=== PATIENT | female | born 1940 | race Caucasian/White ===

== ENCOUNTER → 2016-06-15 | Outpatient (CLI) | payer MEDICARE, OTHER ==
[~2016-06-15] MED LIST: AMILORIDE HCL-H1 TAB PO; ASPIRIN ENTERI325 M1 PO; ATORVASTATIN CA10 MG PO; CELECOXIB200 MG PO; DOXAZOSIN MESYLA2 MG PO; FLEXERIL10 MG PO; LEVOTHYROXINE50 MCG PO; NEURONTIN PO; OXYCODON HCL-1 UDTA1 PO; OXYCONTIN10 MG PO; PANTOPRAZOLE SO40 MG PO; PERCOCET 10/3251 TAB PO; RAMIPRIL10 MG PO; ZYRTEC10 M1 PO
--- NOTE | ~2016-06-15 | CR63 ---
[facility] A Service of [facility] RADIOLOGY TEXT RESULTS PATIENT: NEHA ANDERSON LOCATION: [facility] : 40 UNIT #: [id number] AGE: [address]: Fabián Prieto MD SEX: F ORDER DR: [id number] [facility] [address] [place], [place] [address] [id number] O MR#: [id number] Acc #: [id number] NAME: NEHA ANDERSON : 1940 SEX: F STUDY DATE/TIME: 06/15/2016 11:20 UNIT: [facility] ROOM: STUDY DESCRIPTION: CR Chest 2 View Attending Physician: Fabián Prieto M.D. Referring Physician: Fabián Prieto M.D. Ordering Physician: Fabián Prieto M.D. Primary Care Physician: Nahum Marie M.D. MEDICAL IMAGING REPORT This report is preliminary unless electronic signature is present EXAM PA and lateral chest, 06/15/2016. COMPARISON STUDIES None HISTORY Preop left total knee arthroplasty. TECHNIQUE PA and lateral views are obtained. FINDINGS The heart size is normal. Vascular pattern is normal. Lungs appear clear with no acute process identified. There is degenerative disc disease throughout the thoracolumbar spine. There are atherosclerotic calcifications in the aorta. The patient has scoliosis. CONCLUSION 1. Scoliosis. 2. No active disease. Dictated by... Con Borjas M.D. THIS IS AN ELECTRONICALLY VERIFIED REPORT Con Borjas M.D. at 06/15/2016 5:06 PM LUCAS/anabell TD: 06/15/2016 15:19 JOB #: [id number] [facility] A Service [facility] RADIOLOGY TEXT RESULTS PATIENT: NEHA ANDERSON LOCATION: [facility] : 40 UNIT #: [id number] AGE: [address]: Fabián Prieto MD SEX: F ORDER DR: MEDICAL IMAGING REPORT COPY
--- NOTE | ~2016-06-15 | EKG ---
PATIENT: NEHA ANDERSON UNIT #: [id number] Ventricular Rate: 95 BPM Atrial Rate: 95 BPM P-R Interval: 168 ms QRS Duration: 88 ms Q-T Interval: 352 ms QTC Calculation(Bezet): 442 ms P [place]: 66 degrees Calculated R [place]: -13 degrees Calculated T [place]: 18 degrees Diagnosis Line: Normal sinus rhythm Diagnosis Line: Normal ECG Diagnosis Line: No previous ECGs available Diagnosis Line: Confirmed by JAMAL FRANCOIS MD ([id number]) on Diagnosis Line: 06/16/2016 11:46:49 AM INTERPRETING MD: SULAIMAN
[2016-06-15 11:19] LABS: URINE APPEARANCE CLEAR; URINE BILIRUBIN NEG (NEG); URINE BLOOD NEG (NEG); URINE COLOR YELLOW; URINE GLUCOSE NEG (NEG); URINE KETONE NEG (NEG); URINE LEUKOCYTE ESTERASE TRACE (NEG); URINE NITRATE NEG (NEG); URINE PH 7.5 (5-8); URINE PROTEIN NEG (NEG); URINE SPECIFIC GRAVITY 1.018 (1.003-1.035)
[2016-06-15 11:20] LABS: URBCS1 AUWI 0-2 /[HPF] (0-2); URINE BACTERIA AUWI NEG (NEGATIVE); URINE SQUAMOUS EPITHELIAL CELL NONE SEEN /[HPF]
[2016-06-15 11:21] LABS: MEAN CELL VOLUME 94.1 FL (83-96); MEAN CORPUSCULAR HEMOGLOBIN 31.3 PG (28-34); MEAN CORPUSCULAR HGB CONC 33.2 g/dL (30-36); RED BLOOD COUNT 4.15 X10e (3.90-5.30); WHITE BLOOD COUNT 6.1 X10e3 (4.0-10.5)
[2016-06-15 11:22] LABS: CULTURE INDICATED? NO
[2016-06-15 11:24] LABS: URINE SOURCE VOID
[2016-06-15 11:26] LABS: PROTHROMBIN TIME (PATIENT) 10.7 SECONDS (9.6-11.5)
[2016-06-15 12:01] LABS: ALBUMIN SERUM 4.4 g/dL (3.5-5.0); BILIRUBIN,TOTAL 0.6 mg/dL (0.2-2.0); CALCIUM SERUM 9.5 mg/dL (8.4-10.2); GLOM FILT RATE Estimated 57.4 mL/min (>60); POTASSIUM 4.4 mmol/L (3.5-5.1); PROTEIN TOTAL SERUM 7.3 g/dL (6.0-8.3)
== END | disposition home or self-care (01) ==
LOC: CAMB 09:49
PROVIDERS: Orthopaedic Surgery
DX: Z01.818 Encounter for other preprocedural examination (principal); M17.12 Unilateral primary osteoarthritis, left knee; M41.9 Scoliosis, unspecified
CPT/HCPCS: 36415; 71020; 80053; 81003; 85027; 85610; 86850; 86900; 86901; 87070; 93005

== ENCOUNTER → 2016-06-16 | Outpatient (CLI) | payer MEDICARE, OTHER ==
--- NOTE | ~2016-06-16 | CO ---
Unit #: [id number] #: [id number] Patient: NEHA ANDERSON [id number] [address] [place], [place] [address] [id number] O MR#: [id number] NAME: NEHA ANDERSON ROOM: Age: 75 Sex: F Admission Date: 06/16/2016 : 1940 Attending Physician: Fabián Prieto M.D. Primary Care Physician: Nahum Marie M.D. Consultation Date: 06/16/2016 CONSULTATION REPORT REASON FOR CONSULTATION Preoperative medical evaluation prior to left total knee arthroplasty scheduled by Dr. Prieto for June 29, 2016. HISTORY OF PRESENT ILLNESS The patient is a 75-year-old female who presented to preprocedural screening for the reason as indicated above. The patient reports a history of left knee pain. She has no other complaints during the time of this interview. She denies chest, arm, neck, or jaw pain or pressure. Denies lightheadedness, dizziness, syncope, presyncope, palpitations, dyspnea on exertion, paroxysmal nocturnal dyspnea, and snoring when she sleeps. She is able to climb a flight of stairs without shortness of breath or chest pain. She has never been advised to have a cardiac catheterization or a stress test procedure. PAST MEDICAL HISTORY 1. Right breast cancer. 2. Hypertension. 3. Vitamin D deficiency. 4. History of thyroid nodule. 5. Kidney failure secondary to hypotension induced by Norvasc (1) blood pressure medication. 6. Gastroesophageal reflux disease. 7. Hyperlipidemia. 8. Allergic rhinitis. 9. Osteoarthritis. 10. Scoliosis. 11. Occipital neuralgia. 12. Chronic low back pain. PAST SURGICAL HISTORY 1. Right total knee arthroplasty. 2. Right parathyroidectomy. 3. Right mastectomy. 4. Breast reconstruction. 5. Bilateral hammertoes. 6. Gallbladder. 7. Epidural blocks. 8. Occipital blocks. 9. EGD/biopsy. 10. Colonoscopy. 11. Patient denies history of kyphoplasty and denies history of CABG. Please note, this patient states that she consistently exhibits "low Unit #: [id number] #: [id number] Patient: NEHA ANDERSON oxygen in the recovery room." MEDICATION ALLERGIES None. ADVERSE MEDICATION REACTIONS Hypotension with associated kidney failure secondary to use of Norvasc in addition to three other blood pressure medications, and Reglan made her hyper and nervous. CURRENT MEDICATIONS 1. Ramipril 10 mg p.o. every morning. 2. Amiloride HCl and hydrochlorothiazide 5/50 mg tab 1 p.o. every morning. 3. Doxazosin methylate 2 mg p.o. at bedtime. 4. Celebrex 200 mg p.o. daily. 5. Atorvastatin calcium 10 mg p.o. every morning. 6. Pantoprazole sodium 40 mg p.o. every morning. 7. Levothyroxine sodium 50 mcg p.o. every morning. 8. Neurontin 200 mg p.o. 3 times daily as needed for occipital neuralgia. 9. Zyrtec 10 mg p.o. every morning. 10. Flexeril 10 mg p.o. b.i.d. p.r.n. leg spasms. 11. Oxycodone HCL/APAP 10/325 mg tab 1 p.o. 5 times daily as needed for low back pain. 12. OxyContin 10 mg p.o. b.i.d. SOCIAL HISTORY Patient denies tobacco use, ETOH use, and illicit drug use. FAMILY HISTORY Per review of Dr. Prieto's office and confirmed with the patient, father coronary artery disease and hypertension. REVIEW OF SYSTEMS Occasional headache related to occipital neuralgia and chronic low back pain. A 10-point review of systems was conducted and otherwise negative except as indicated under History of Present Illness. PHYSICAL EXAMINATION GENERAL: A 75-year-old female awake, alert, and in no acute distress. VITAL SIGNS: Temperature 98.5, heart rate 100, respiratory rate 18, blood pressure 115/71, and oxygen saturation 93% on room air. HEENT: Atraumatic and normocephalic. Sclerae are anicteric. No discharge from eyes, ears, or nares. LYMPHATICS: No preauricular, postauricular, tonsillar, or submental anterior or posterior cervical or supra/infraclavicular adenopathy. ENDOCRINE: No thyromegaly, thyroid nodules, or tenderness. RESPIRATORY: Clear to auscultation all fam bilaterally without wheezes, rhonchi, or rales. CARDIOVASCULAR: S1 and S2, regular rate and rhythm, without murmur or rub. GASTROINTESTINAL: Bowel sounds positive x4. Soft, nontender, and nondistended. EXTREMITIES: No edema, cyanosis, or clubbing. MUSCULOSKELETAL: Strength 5 over 5 all extremities bilaterally to flexion and extension without obvious atrophy. No tenderness. NEUROLOGIC: Alert and oriented x3. Speech clear. Moves all extremities. Unit #: [id number] #: [id number] Patient: NEHA ANDERSON DIAGNOSTIC STUDIES LABORATORY: WBC 6.1, hemoglobin 13, hematocrit 39, and platelet count 248,000. Sodium 140, potassium 4.4, chloride 103, CO2 of 29, glucose 118, BUN 17, creatinine 1, calcium 9.5, AST 22, ALT 13, alkaline phosphatase 92, bilirubin total 0.6, total protein 7.3, and albumin 4.4. PT 10.7 and INR 1. Blood type A positive. Antibody screen negative. Urinalysis with leukocyte esterase trace, nitrite negative, and UHYALS 5-10, otherwise negative with culture and sensitivity not indicated. IMAGING: Two-view chest x-ray report, conclusion: Scoliosis and no active disease. CARDIOLOGY: 12-lead EKG normal sinus rhythm, normal ECG per confirmed report. IMPRESSION The patient is a 75-year-old female who presents to preprocedural screening for: 1. Preoperative medical evaluation prior to left total knee arthroplasty. The patient's Jordan Revised cardiac risk index is equal to 0.4%. This represents the patient's perioperative risk of cardiac from fatal or nonfatal myocardial infarction, cardiopulmonary arrest, arrhythmia, and/or pulmonary edema. This has been discussed in detail with the patient, and she wishes to proceed with surgery as scheduled at this time. 2. History of right breast cancer. 3. Hypertension. Blood pressure is stable today. Will monitor postoperatively and adjust medications and IV fluids accordingly. 4. Vitamin D deficiency. 5. History of thyroid nodule. Will check TSH and free T4 today and continue home dose of Synthroid pending that result. 6. History of kidney failure secondary to Norvasc. Again, will monitor blood pressure closely perioperatively and adjust medications and IV fluids as needed. 7. Gastroesophageal reflux disease. 8. Hyperlipidemia. 9. Allergic rhinitis. 10. Osteoarthritis. 11. Mild scoliosis. 12. History of occipital neuralgia. 13. Chronic low back pain. Patient tells me she is established with Dr. Marie, her informatics nurse specialist, and he is who prescribes her pain medication. 14. Health maintenance. Patient tells me her dental exam was done within the past year. She may benefit from preoperative dental clearance pending further recommendations of Dr. Prieto. Thank you for allowing us to participate in the care of this patient. Will gladly follow her for postop medical management pending order of Dr. Prieto. Dictated by... Khalida Esquivel A.P.R.N. for Rashida Spear M.D. TARUN/heather TD: 06/16/2016 20:41 JOB #: [id number] Unit #: [id number] #: [id number] Patient: NEHA ANDERSON CONSULTATION REPORT X Khalida Esquivel APRN X CONSULTATION REPORT
[2016-06-16 14:39] LABS: THYROID STIMULATING HORMONE 1.51 uIU/ml (0.34-5.60)
[2016-06-16 14:46] LABS: FREE THYROXIN (T4) 1.21 ng/dL (0.58-1.64)
== END | disposition home or self-care (01) ==
LOC: CAMB 09:45
PROVIDERS: Orthopaedic Surgery
DX: Z01.812 Encounter for preprocedural laboratory examination (principal); M17.12 Unilateral primary osteoarthritis, left knee; E55.9 Vitamin D deficiency, unspecified; I10 Essential (primary) hypertension; E04.1 Nontoxic single thyroid nodule; E78.5 Hyperlipidemia, unspecified; K21.9 Gastro-esophageal reflux disease without esophagitis; M41.9 Scoliosis, unspecified; Z85.3 Personal history of malignant neoplasm of breast; Z79.82 Long term (current) use of aspirin; Z98.890 Other specified postprocedural states
CPT/HCPCS: 84439; 84443

== ENCOUNTER 2016-06-29 05:21 | Inpatient (IN) | payer MEDICARE, OTHER ==
--- NOTE | ~2016-06-29 | OR ---
Unit #: [id number] #: [id number] Patient: NEHA ANDERSON [id number] [address] [place], [place] [address] [id number] MR#: [id number] NAME: NEHA ANDERSON ROOM: [facility] Date of Procedure: 06/29/2016 Admission Date: 06/29/2016 Surgeon: Fabián Prieto M.D. : 1940 Attending Physician: Fabián Prieto M.D. Referring Physician: Fabián Prieto M.D. Primary Care Physician: Nahum Marie M.D. OPERATIVE REPORT PREOPERATIVE DIAGNOSIS Primary localized osteoarthritis of left knee. POSTOPERATIVE DIAGNOSIS Primary localized osteoarthritis of left knee. PROCEDURE PERFORMED Left total knee. ASSISTANTS Barbara Bo and Pancho Gore. ANESTHESIA Adductor canal block plus general. ESTIMATED BLOOD LOSS 100 mL. DESCRIPTION OF PROCEDURE The patient was brought to the holding room, given 1 g of Kefzol. This will be continued postop, but discontinued within 23 hours the start time of surgery. She was then given an adductor canal block, brought back to the operating room, given a general anesthetic. Tourniquet was placed around the left leg. The left leg was prepped and draped in a sterile fashion. Tourniquet was inflated to 250. A straight anterior skin incision was made. The subcutaneous dissected away and a medial arthrotomy performed. The patient had severe patellofemoral arthritis. The osteophytes were removed. The intramedullary guide was used and a 6-degree valgus cut was made on the distal femur. The femur was sized and it was found to be a size 3 PFC femoral trial. The anterior-posterior cutting block was applied. The anterior and posterior cuts were made along with the chamfer cuts. Proximal tibial cut was made using an external tibial guide. This was sized at a 3. Any remaining meniscal fragments were removed. Any posterior condylar osteophytes were removed. We then injected the posterior capsule and the periosteum with ropivacaine mixture and after this was done, the patient then had the trials applied. The drill holes were made for lugs on the femoral component. The trial tibia was applied with an 8 insert. The knee came to full extension and good stability in extension and flexion. Rotation of the tibia was marked and the external alignment guide showed appropriate alignment of the limb. The patella was grasped with 2 towel clips, measured 23 mm thick, cut smooth at 13, and a 41 patella was the appropriate size. The 3 drill Unit #: [id number] #: [id number] Patient: NEHA ANDERSON holes were made. Trial patella applied and it tracked properly. We then removed all the trials, used the drill and punch on the tibial tray. The knee was irrigated and dried and then all 3 components were cemented simultaneously. Once again, it was a size 3 femur cruciate retaining, size 3 tibia, all poly 8 mm thick, and a 41 patella from the [employer] Sigma Knee System. Any excess cement was removed. The knee was held in extension while the cement hardened. The rest of the ropivacaine mixture was injected. After the cement was hardened, the tourniquet was released. Hemostasis was obtained and the wound irrigated with Betadine and then bacitracin and then closed using 0 Ethibond in the arthrotomy, 0 and 2-0 Vicryl in the subcutaneous, and jim in the skin. reading assistant, Barbara Bo was present throughout the entire case. Dictated by... Lino Rowe/lee ann TD: 06/29/2016 15:01 JOB #: [id number] OPERATIVE REPORT X Fabián Prieto MD PROCEDURE OPERATIVE NOTE
--- NOTE | ~2016-06-29 | DS ---
Unit #: [id number] #: [id number] Patient: NEHA ANDERSON [id number] [address] [place], [place] [address] [id number] I MR#: [id number] NAME: NEHA ANDERSON ROOM: [facility] Age: 75 Sex: F Admission Date: 06/29/2016 : 1940 Discharge Date: 06/30/2016 Attending Physician: Fabián Prieto M.D. Referring Physician: Fabián Prieto M.D. Primary Care Physician: Nahum Marie M.D. DISCHARGE SUMMARY ADMITTING DIAGNOSIS Primary localized osteoarthritis of the left knee. DISCHARGE DIAGNOSIS Primary localized osteoarthritis of the left knee. PROCEDURES IN THE HOSPITAL Left total knee. HOSPITAL COURSE The patient was admitted on 06/29/2016 and taken to the operating room, where she underwent a left total knee replacement. Postoperatively, she has done well. She has been up with therapy and is ambulated. Neurovascular exam is intact. She is comfortable on oral pain medicine. Her hemoglobin today is 11.3 and is felt she can be discharged home today. She will have home physical therapy starting tomorrow. She is on aspirin 325 b.i.d. for DVT prophylaxis and her pain medicine. CONDITION ON DISCHARGE Improved. DISPOSITION To home. Dictated by... Lino Rowe/lee ann TD: 07/02/2016 02:54 JOB #: [id number] DISCHARGE SUMMARY X Fabián Prieto MD X DISCHARGE SUMMARY
[2016-06-29 07:02] LABS: PROTHROMBIN TIME (PATIENT) 10.9 SECONDS (9.6-11.5)
[2016-06-29] MEDS ORDERED: RAMIPRIL10 MG PO (10:10)
[2016-06-29] MEDS ORDERED: AMILORIDE HCL-H1 TAB PO (10:10)
[2016-06-29] MEDS ORDERED: CELECOXIB200 MG PO (10:11)
[2016-06-29] MEDS ORDERED: DOXAZOSIN MESYLA2 MG PO (10:11)
[2016-06-29] MEDS ORDERED: ATORVASTATIN CA10 MG PO (10:13)
[2016-06-29] MEDS ORDERED: LEVOTHYROXINE50 MCG PO (10:14)
[2016-06-29] MEDS ORDERED: PANTOPRAZOLE SO40 MG PO (10:14)
[2016-06-29] MEDS ORDERED: ZYRTEC10 M1 PO (10:15)
[2016-06-29] MEDS ORDERED: NEURONTIN PO (10:15)
[2016-06-29] MEDS ORDERED: OXYCODON HCL-1 UDTA1 PO (10:16)
[2016-06-29] MEDS ORDERED: FLEXERIL10 MG PO (10:16)
[2016-06-29] MEDS ORDERED: OXYCONTIN10 MG PO (10:17)
[2016-06-30 02:59] LABS: HEMATOCRIT 35.1 % (35.0-45.0); HEMOGLOBIN 11.3 gm/dL (12.0-16.0)
[2016-06-30 03:24] LABS: CALCIUM SERUM 8.1 mg/dL (8.4-10.2); GLOM FILT RATE Estimated 57.4 mL/min (>60); MAGNESIUM 1.9 mg/dL (1.6-3.0); POTASSIUM 4.5 mmol/L (3.5-5.1)
[2016-06-30] MEDS ORDERED: ASPIRIN ENTERI325 M1 PO (13:57)
[2016-06-30] MEDS ORDERED: PERCOCET 10/3251 TAB PO (13:59)
== END 2016-06-30 14:37 | disposition home health service (06) | DRG 470 ==
LOC: CSUR 05:21 → CPACUOF 06:50 → C4B 09:40
PROVIDERS: Orthopaedic Surgery
PROC: 0SRD0J9 Replacement of Left Knee Joint with Synthetic Substitute, Cemented, Open Approach (ICD-10-PCS; principal; 2016-06-29 07:00)
DX: M17.12 Unilateral primary osteoarthritis, left knee (principal); E87.1 Hypo-osmolality and hyponatremia; I10 Essential (primary) hypertension; D62 Acute posthemorrhagic anemia; K21.9 Gastro-esophageal reflux disease without esophagitis; Z85.3 Personal history of malignant neoplasm of breast; Z96.651 Presence of right artificial knee joint; Z90.49 Acquired absence of other specified parts of digestive tract; Z92.21 Personal history of antineoplastic chemotherapy; M41.9 Scoliosis, unspecified; E55.9 Vitamin D deficiency, unspecified; M54.5 Low back pain; M25.512 Pain in left shoulder; R73.9 Hyperglycemia, unspecified
CPT/HCPCS: 80048; 83735; 85014; 85018; 85610; 94010; 97110; 97116; 97162; 97530; C1776; G8978-GP; G8979-GP; G8980-GP; J0131; J0171; J0690; J0735; J1100; J1170; J1885; J2250; J2405; J2795; J3010